=== PATIENT | female | born 1965 | race Two or more races ===

== ENCOUNTER 2018-01-13 15:37 | Emergency (ER) | payer OTHER ==
[~2018-01-13] VITALS: Ht 154.9 cm; Wt 68.0 kg
[~2018-01-13 15:37] MED LIST: ALPRAZOLAM0.5 MG PO; IBUPROFEN600 MG ORAL; IBUPROFEN600 MG PO; KEFLEX500 MG ORAL; TYLENOL EXTRA500 MG ORAL; VALIUM5 MG PO
[2018-01-13 15:45] VITALS: BP 156/90
[2018-01-13] MEDS ORDERED: Aspirin Baby 81mg ORAL ONE (16:00)
[2018-01-13] MEDS ORDERED: NKM (16:01)
--- NOTE | 2018-01-13 16:27 | Diagnostic Imaging Report ---
Indication: Chest pain, nonradiating, for 2 days, burning Technique: One view of the chest Comparison: For 12/02/2014 Findings: Body habitus limits evaluation. Lungs and pleural spaces remain clear. The heart size is normal. Findings are unchanged Impression: No acute process
[2018-01-13 16:32] LABS: BASOPHILS % (AUTO) 0.8 % (0.0-2.0); EOSINOPHILS % (AUTO) 1.6 % (0.0-3.0); HEMATOCRIT 41.1 % (37.0-47.0); HEMOGLOBIN 14.2 G/DL (12.0-16.0); MEAN CORPUSCULAR VOLUME 88 FL (80-99); MONOCYTES % (AUTO) 6.8 % (1.0-10.0); NEUTROPHILS % (AUTO) 53.8 % (45.0-75.0); PLATELET COUNT 162 K/UL (150-450); RED BLOOD COUNT 4.65 M/UL (4.20-5.40); RED CELL DISTRIBUTION WIDTH 12.1 % (11.6-14.8)
[2018-01-13 16:36] LABS: APPEARANCE,URINE CLEAR; BILIRUBIN, URINE NEGATIVE (NEGATIVE); COLOR,URINE PALE YELLOW; GLUCOSE, URINE (UA) NEGATIVE (NEGATIVE); KETONES,URINE NEGATIVE (NEGATIVE); LEUKOCYTE ESTERASE ,URINE 2+ (NEGATIVE); NITRITE,URINE NEGATIVE (NEGATIVE); PH,URINE 6.5 (4.5-8.0); PROTEIN,URINE NEGATIVE (NEGATIVE); UROBILINOGEN,URINE NORMAL MG/DL (0.0-1.0)
[2018-01-13 16:41] LABS: INR 1.1 (0.9-1.1)
[2018-01-13 16:44] LABS: ANION GAP 5 mmol/L (5-15); BLOOD UREA NITROGEN 19 mg/dL (7-18); CARBON DIOXIDE 30 MMOL/L (21-32); CHLORIDE 104 MMOL/L (98-107); CREATININE 0.9 MG/DL (0.55-1.30); POTASSIUM 3.8 MMOL/L (3.5-5.1); SODIUM 139 MMOL/L (136-145)
[2018-01-13 16:56] LABS: ALANINE AMINOTRANSFERASE 30 U/L (12-78); ALBUMIN 3.4 G/DL (3.4-5.0); ALBUMIN/GLOBULIN RATIO 0.8 (1.0-2.7); ALKALINE PHOSPHATASE 100 U/L (46-116); ASPARTATE AMINO TRANSFERASE 20 U/L (15-37); BILIRUBIN,TOTAL 0.2 MG/DL (0.2-1.0); CKMB 3.7 NG/ML (0.0-3.6); CREATINE KINASE 243 U/L (26-308)
[2018-01-13] MEDS ORDERED: Lidocaine 2% Visc 15ml soln ORAL ONE (17:00)
[2018-01-13 18:20] VITALS: BP 141/65
--- NOTE | 2018-01-13 18:58 | Emergency Room Report ---
History of Present Illness General Chief Complaint: Chest Pain Source: Patient Present Illness HPI This patient complains of chest pain and headache. The patient states that she has had chest pain for the past few days. She states she went and saw her primary OB last week and was found to have high blood pressure. She notes that she has not had a history of high blood pressure. She states that she has had an ongoing headache for about a week. She states that her chest pain started 2 days ago. She states she's also had a burning sensation in her chest. She denies fever or chills. She denies cough or congestion. She denies abdominal pain. She has no other complaints. Allergies: Coded Allergies: No Known Allergies (Unverified , 11/20/12) Patient History Past Medical History: see triage record, HTN Social History: Denies: smoking, alcohol use, drug use Last Menstrual Period: 2015 Reviewed Nursing Documentation: PMH: Agreed; PSxH: Agreed Nursing Documentation-PMH Past Medical History: No Stated History Hx Hypertension: Yes Review of Systems All Other Systems: negative except mentioned in HPI Physical Exam Vital Signs Date Time Temp Pulse Resp B/P (MAP) Pulse Ox O2 Delivery O2 Flow Rate FiO2 01/13/18 15:45 72 14 Room Air 01/13/18 15:45 98.2 156/90 99 Sp02 EP Interpretation: reviewed, normal General Appearance: no apparent distress, alert, GCS 15, non-toxic Head: normocephalic, atraumatic Eyes: bilateral eye normal inspection, bilateral eye PERRL ENT: hearing grossly normal, normal pharynx, no angioedema, normal voice Neck: full range of motion, supple/symm/no masses Respiratory: chest non-tender, lungs clear, normal breath sounds, no respiratory distress, no retraction, no accessory muscle use, speaking full sentences Cardiovascular #1: regular rate, rhythm, no edema Gastrointestinal: normal bowel sounds, non tender, soft, non-distended, no guarding, no rebound Rectal: deferred Musculoskeletal: back normal, gait/station normal, normal range of motion, non- tender Neurologic: alert, oriented x3, responsive, motor strength/tone normal, sensory intact, speech normal Psychiatric: judgement/insight normal, memory normal, mood/affect normal, no suicidal/homicidal ideation Skin: normal color, no rash, warm/dry, well hydrated Medical Decision Making Diagnostic Impression: Primary Impression: Chest pain Additional Impression: UTI (urinary tract infection) ER Course The patient is low risk chest pain. I considered PE, PTX, acute coronary syndrome, aortic dissection, pneumonia which is unlikely given hx, CE, CXR. Low risk PERC and Wells. Negative work-up to include Cardiac enzymes, CXR, EKG. Given history and PE I do not feel that this patient needs further evaluation at this time. The patient was instructed to follow-up closely with their PCP and close return precautions were given. Laboratory Tests Test 01/13/18 16:18 White Blood Count 7.0 K/UL (4.8-10.8) Red Blood Count 4.65 M/UL (4.20-5.40) Hemoglobin 14.2 G/DL (12.0-16.0) Hematocrit 41.1 % (37.0-47.0) Mean Corpuscular Volume 88 FL (80-99) Mean Corpuscular Hemoglobin 30.6 PG (27.0-31.0) Mean Corpuscular Hemoglobin Concent 34.6 G/DL (32.0-36.0) Red Cell Distribution Width 12.1 % (11.6-14.8) Platelet Count 162 K/UL (150-450) Mean Platelet Volume 12.0 FL (6.5-10.1) H Neutrophils (%) (Auto) 53.8 % (45.0-75.0) Lymphocytes (%) (Auto) 37.0 % (20.0-45.0) Monocytes (%) (Auto) 6.8 % (1.0-10.0) Eosinophils (%) (Auto) 1.6 % (0.0-3.0) Basophils (%) (Auto) 0.8 % (0.0-2.0) Prothrombin Time 11.4 SEC (9.30-11.50) Prothrombin Time INR 1.1 (0.9-1.1) PTT 31 SEC (23-33) Urine Color Pale yellow Urine Appearance Clear Urine pH 6.5 (4.5-8.0) Urine Specific [place] 1.010 (1.005-1.035) Urine Protein Negative (NEGATIVE) Urine Glucose (UA) Negative (NEGATIVE) Urine Ketones Negative (NEGATIVE) Urine Blood 1+ (NEGATIVE) H Urine Nitrite Negative (NEGATIVE) Urine Bilirubin Negative (NEGATIVE) Urine Urobilinogen Normal MG/DL (0.0-1.0) Urine Leukocyte Esterase 2+ (NEGATIVE) H Urine RBC 2-4 /HPF (0 - 2) H Urine WBC 5-10 /HPF (0 - 2) H Urine Squamous Epithelial Cells Few /LPF (NONE/OCC) Urine Bacteria Occasional /HPF (NONE) Sodium Level 139 MMOL/L (136-145) Potassium Level 3.8 MMOL/L (3.5-5.1) Chloride Level 104 MMOL/L (98-107) Carbon Dioxide Level 30 MMOL/L (21-32) Anion Gap 5 mmol/L (5-15) Blood Urea Nitrogen 19 mg/dL (7-18) H Creatinine 0.9 MG/DL (0.55-1.30) Estimate Glomerular Filtration Rate > 60 mL/min (>60) Glucose Level 90 MG/DL (74-106) Calcium Level 9.0 MG/DL (8.5-10.1) Total Bilirubin 0.2 MG/DL (0.2-1.0) Aspartate Amino Transferase (AST) 20 U/L (15-37) Alanine Aminotransferase (ALT) 30 U/L (12-78) Alkaline Phosphatase 100 U/L (46-116) Total Creatine Kinase 243 U/L (26-308) Creatine Kinase MB 3.7 NG/ML (0.0-3.6) H Creatine Kinase MB Relative Index 1.5 Troponin I 0.000 ng/mL (0.000-0.056) Total Protein 7.6 G/DL (6.4-8.2) Albumin 3.4 G/DL (3.4-5.0) Globulin 4.2 g/dL Albumin/Globulin Ratio 0.8 (1.0-2.7) L Urine Opiates Screen Negative (NEGATIVE) Urine Barbiturates Screen Negative (NEGATIVE) Phencyclidine (PCP) Screen Negative (NEGATIVE) Urine Amphetamines Screen Negative (NEGATIVE) Urine Benzodiazepines Screen Negative (NEGATIVE) Urine Cocaine Screen Negative (NEGATIVE) Urine Marijuana (THC) Screen Negative (NEGATIVE) EKG Diagnostic Results Rate: normal Rhythm: NSR ST Segments: no acute changes Rhythm Strip Diag. Results EP Interpretation: yes Rate: 60's Rhythm: NSR, no PVC's, no ectopy Chest X-Ray Diagnostic Results Chest X-Ray Diagnostic Results : Chest X-Ray Ordered: Yes # of Views/Limited/Complete: 1 View Indication: Chest Pain EP Interpretation: Yes Interpretation: no consolidation, no effusion, no pneumothorax, no acute cardiopulmonary disease Impression: No acute disease Electronically Signed by: Pippa Last Vital Signs Date Time Temp Pulse Resp B/P (MAP) Pulse Ox O2 Delivery O2 Flow Rate FiO2 01/13/18 18:20 98.0 60 22 141/65 98 Room Air Status: improved Disposition: HOME, SELF-CARE Condition: Improved Referrals: [facility],REFERRING (PCP) Patient Instructions: Nonspecific Chest Pain, Heartburn Erica Tejeda DO Jan 13, 2018 18:58
[2018-01-13] MEDS ORDERED: ZANTAC150 MG ORAL (19:00)
[2018-01-13] MEDS ORDERED: NITROFURANTOIN100 M2 ORAL (19:03)
[2018-01-13 19:10] VITALS: BP 135/78
--- NOTE | 2018-01-14 10:04 | Diagnostic Imaging Report ---
Indication: Headache Technique: Contiguous 5 mm thick transaxial imaging of the head obtained in a Siemens Sensation [address] scanner. Soft tissue and bone windows generated. Automatic Exposure Control was utilized. Total Dose length Product (DLP): 2191.[address] Dose Index Volume (CTDIvol): 70.38,70.38 mGy Comparison: none Findings: The size and configuration of the cortical sulci, basal cisterns, and ventricles are within normal limits for age. There is no mass effect, midline shift, or edema identified. There is no evidence of acute hemorrhage or abnormal intra-axial or extra-axial fluid collections. The bones and soft tissues are unremarkable. Impression: No mass effect, edema or acute bleed. The CT scanner at [facility] is accredited by the [employer] and the scans are performed using dose optimization techniques as appropriate to a performed exam including Automatic Exposure control.
--- NOTE | 2018-01-15 15:09 | Cardiology Report ---
APPROVED REPORT EKG Measurement Heart [id number] Normal sinus rhythm Normal ECG
== END 2018-01-13 19:11 | disposition home or self-care (01) ==
LOC: EMR 16:23
DX: R07.9 Chest pain, unspecified (principal); N39.0 Urinary tract infection, site not specified; I10 Essential (primary) hypertension
CPT/HCPCS: 36415; 70450; 71045; 80053; 80307; 81003; 82550; 82553; 84484; 85025; 85610; 85730; 93005; 96361; 96374; 99284; S0028; 96360

== ENCOUNTER 2018-01-29 21:24 | Emergency (ER) | payer OTHER ==
[~2018-01-29] VITALS: Ht 157.5 cm; Wt 94.8 kg
[~2018-01-29 21:24] MED LIST changes: +NITROFURANTOIN100 M2 ORAL; +NKM; +ZANTAC150 MG ORAL
[2018-01-29] MEDS ORDERED: LORazepam Inj 2mg/ml 1ml IV ONE (22:15)
[2018-01-29 22:33] VITALS: BP 129/73
[2018-01-29 22:50] LABS: BASOPHILS % (AUTO) 0.8 % (0.0-2.0); EOSINOPHILS % (AUTO) 2.3 % (0.0-3.0); HEMATOCRIT 39.6 % (37.0-47.0); HEMOGLOBIN 13.5 G/DL (12.0-16.0); MEAN CORPUSCULAR VOLUME 87 FL (80-99); MONOCYTES % (AUTO) 7.2 % (1.0-10.0); NEUTROPHILS % (AUTO) 44.7 % (45.0-75.0); PLATELET COUNT 165 K/UL (150-450); RED BLOOD COUNT 4.57 M/UL (4.20-5.40); RED CELL DISTRIBUTION WIDTH 11.9 % (11.6-14.8); WHITE BLOOD COUNT 7.3 K/UL (4.8-10.8)
[2018-01-29 22:57] LABS: ANION GAP 9 mmol/L (5-15); BLOOD UREA NITROGEN 17 mg/dL (7-18); CALCIUM 8.9 MG/DL (8.5-10.1); CARBON DIOXIDE 26 MMOL/L (21-32); CHLORIDE 106 MMOL/L (98-107); CREATININE 0.6 MG/DL (0.55-1.30); POTASSIUM 3.9 MMOL/L (3.5-5.1); SODIUM 141 MMOL/L (136-145)
[2018-01-29] MEDS ORDERED: ATIVAN0.5 MG ORAL (23:27)
--- NOTE | 2018-01-29 23:27 | Emergency Room Report ---
History of Present Illness General Chief Complaint: Pain Source: Patient, Medical Record Present Illness HPI Is a 52-year-old female with history of hypertension. She presents with chief complaint of chest pain, high blood pressure. She took her blood pressure at the pharmacy and was elevated. She then developed chest pain. No nausea no vomiting. Similar symptom for the last couple weeks. Denies any diaphoresis. Denies any shortness breath. Said her heart was beating fast. Denies any other complaint. Allergies: Coded Allergies: NITROFURANTOIN (Verified Allergy, Unknown, 01/29/18) Patient History Past Medical History: see triage record, old chart reviewed, HTN Past Surgical History: none Pertinent Family History: none Social History: Denies: smoking Last Menstrual Period: Post menopausal (2006) Now: No Immunizations: other Reviewed Nursing Documentation: PMH: Agreed; PSxH: Agreed Nursing Documentation-PMH Past Medical History: No History, Except For Hx Hypertension: Yes Hx Gastrointestinal Problems: Yes - GERD Review of Systems Eye: Denies: eye pain, blurred vision ENT: Denies: ear pain, nose congestion, throat swelling Respiratory: Denies: cough, shortness of breath Cardiovascular: Reports: chest pain; Denies: palpitations Gastrointestinal: Denies: abdominal pain, diarrhea, nausea, vomiting Musculoskeletal: Denies: back pain, joint pain Skin: Denies: rash Neurological: Denies: headache, numbness Endocrine: Denies: increased thirst, increased urine Hematologic/Lymphatic: Denies: easy bruising All Other Systems: negative except mentioned in HPI Physical Exam Vital Signs Date Time Temp Pulse Resp B/P (MAP) Pulse Ox O2 Delivery O2 Flow Rate FiO2 01/29/18 21:31 98.1 63 19 148/75 99 Room Air vitals with high blood pressure Sp02 EP Interpretation: reviewed, normal General Appearance: well appearing, no apparent distress, alert Head: normocephalic, atraumatic Eyes: bilateral eye PERRL, bilateral eye EOMI ENT: hearing grossly normal, normal pharynx Neck: full range of motion, supple, no meningismus Respiratory: chest non-tender, lungs clear, normal breath sounds Cardiovascular #1: regular rate, rhythm, no murmur Gastrointestinal: normal bowel sounds, non tender, no mass, no organomegaly, no bruit, non-distended Musculoskeletal: back normal, gait/station normal, normal range of motion Psychiatric: mood/affect normal Skin: warm/dry Medical Decision Making Diagnostic Impression: Primary Impression: Anxiety attack Additional Impression: Chest pain ER Course Patient with chest pain. Most likely anxiety related. Without any intervention blood pressures normal. No evidence of ACS, PE, dissection to name a few. We will discharge home. Lab Results Impression labs normal EKG Diagnostic Results Rate: normal Rhythm: NSR ST Segments: no acute changes Rhythm Strip Diag. Results Rhythm Strip Time: 23:26 EP Interpretation: yes Rate: 60 Rhythm: NSR, no PVC's, no ectopy Last Vital Signs Date Time Temp Pulse Resp B/P (MAP) Pulse Ox O2 Delivery O2 Flow Rate FiO2 01/29/18 22:33 98.1 57 19 129/73 99 Room Air Status: improved Disposition: HOME, SELF-CARE Condition: Stable Scripts Lorazepam* (ATIVAN*) 0.5 Mg Tablet 0.5 MG ORAL THREE TIMES A DAY, #15 TAB Prov: Oskar Jiménez MD 01/29/18 Referrals: [facility],REFERRING (PCP) Additional Instructions: Follow-up with your doctor in 7 days. Return if worse. Oskar Jiménez MD Jan 29, 2018 23:27
[2018-01-29 23:54] VITALS: BP 129/73
[2018-01-29 23:55] VITALS: BP 129/73
--- NOTE | 2018-02-01 16:53 | Cardiology Report ---
APPROVED REPORT EKG Measurement Heart [id number] Sinus bradycardia Otherwise normal ECG
== END 2018-01-29 23:57 | disposition home or self-care (01) ==
LOC: EMR 22:07
DX: F41.9 Anxiety disorder, unspecified (principal); R07.9 Chest pain, unspecified; I10 Essential (primary) hypertension; K21.9 Gastro-esophageal reflux disease without esophagitis; Z88.8 Allergy status to other drugs, medicaments and biological substances
CPT/HCPCS: 36415; 80048; 84484; 85025; 93005; 96374; 99284

== ENCOUNTER 2018-08-13 20:38 | Emergency (ER) | payer OTHER ==
[~2018-08-13] VITALS: Ht 157.5 cm; Wt 93.0 kg
[~2018-08-13 20:38] MED LIST changes: +ATIVAN0.5 MG ORAL
--- NOTE | 2018-08-13 21:19 | NUR ---
ED Nurse Note: Urine sample collected and sent to Lab.
[2018-08-13 21:32] LABS: APPEARANCE,URINE CLEAR; BILIRUBIN, URINE NEGATIVE (NEGATIVE); COLOR,URINE PALE YELLOW; GLUCOSE, URINE (UA) NEGATIVE (NEGATIVE); KETONES,URINE NEGATIVE (NEGATIVE); LEUKOCYTE ESTERASE ,URINE 2+ (NEGATIVE); NITRITE,URINE NEGATIVE (NEGATIVE); PH,URINE 8 (4.5-8.0); PROTEIN,URINE NEGATIVE (NEGATIVE); UROBILINOGEN,URINE NORMAL MG/DL (0.0-1.0)
[2018-08-13] MEDS ORDERED: BACTRIM DS TAB1 EAC1 ORAL (21:39)
[2018-08-13] MEDS ORDERED: PHENAZOPYRIDIN100 MG ORAL (21:39)
--- NOTE | 2018-08-13 21:42 | Emergency Room Report ---
History of Present Illness General Chief Complaint: Female Urogenital Problems Source: Patient Present Illness HPI Patient presents with complaints of several days of burning with urination Denies any flank pain denies any fevers Denies any chest pain or shortness of breath Pain is 5 out of 10 worse with urination denies any other recent fall or trauma Denies any vaginal discharge or foul smell Allergies: Coded Allergies: NITROFURANTOIN (Verified Allergy, Unknown, 08/13/18) Patient History Past Medical History: see triage record Pertinent Family History: none Now: No Reviewed Nursing Documentation: PMH: Agreed; PSxH: Agreed Nursing Documentation-PMH Hx Hypertension: Yes Hx Gastrointestinal Problems: Yes - GERD Review of Systems All Other Systems: negative except mentioned in HPI Physical Exam Vital Signs Date Time Temp Pulse Resp B/P (MAP) Pulse Ox O2 Delivery O2 Flow Rate FiO2 08/13/18 20:45 98.1 67 16 167/84 (111) 98 Room Air Sp02 EP Interpretation: reviewed, normal General Appearance: well appearing, no apparent distress Head: normocephalic, atraumatic Eyes: bilateral eye PERRL, bilateral eye EOMI ENT: hearing grossly normal, normal pharynx, TMs + canals normal, uvula midline Neck: full range of motion, supple, no meningismus, no bony tend Respiratory: lungs clear, normal breath sounds, no rhonchi, no respiratory distress, no retraction, no accessory muscle use Cardiovascular #1: normal peripheral pulses, regular rate, rhythm, no edema, no gallop, no JVD, no murmur Gastrointestinal: normal bowel sounds, non tender, soft, no mass, no organomegaly, non-distended, no guarding, no hernia, no pulsatile mass, no rebound Genitourinary: no CVA tenderness Musculoskeletal: normal inspection Neurologic: oriented x3, responsive, flare worker III-XII nml as tested, motor strength/ tone normal, sensory intact Psychiatric: mood/affect normal Skin: normal color, no rash, warm/dry, palpation normal Lymphatic: normal inspection, no adenopathy Medical Decision Making Diagnostic Impression: Primary Impression: UTI (urinary tract infection) ER Course Given the history and presentation multiple differential considered including but not limited to UTI, Pyelonephritis, urethritis Patient does not appear septic or toxic Urine sample that show leukocytes and consideration for early infectious process And she will be placed on antibiotics patient also do question her blood pressure At 167 systolic at this time Patient does not have a history of hypertension With this one documentation we cannot diagnose her with hypertension I discussed that with the patient she requires checking of her blood pressure twice daily for the next several days presented to her primary physician for further follow-up as needed Labs Test 08/13/18 21:17 Urine Color Pale yellow Urine Appearance Clear Urine pH 8 (4.5-8.0) Urine Specific [place] 1.010 (1.005-1.035) Urine Protein Negative (NEGATIVE) Urine Glucose (UA) Negative (NEGATIVE) Urine Ketones Negative (NEGATIVE) Urine Blood Negative (NEGATIVE) Urine Nitrite Negative (NEGATIVE) Urine Bilirubin Negative (NEGATIVE) Urine Urobilinogen Normal MG/DL (0.0-1.0) Urine Leukocyte Esterase 2+ (NEGATIVE) Urine RBC 0-2 /HPF (0 - 2) Urine WBC 2-4 /HPF (0 - 2) Urine Squamous Epithelial Cells Few /LPF (NONE/OCC) Urine Bacteria Few /HPF (NONE) Urine HCG, Qualitative Negative (NEGATIVE) Last Vital Signs Date Time Temp Pulse Resp B/P (MAP) Pulse Ox O2 Delivery O2 Flow Rate FiO2 08/13/18 20:45 98.1 67 16 167/84 (111) 98 Room Air Status: unchanged Disposition: HOME, SELF-CARE Condition: Stable Scripts Phenazopyridine Hcl* (PYRIDIUM*) 100 Mg Tablet 100 MG ORAL THREE TIMES A DAY for 3 Days, TAB Prov: Mo Gonzales DO 08/13/18 Trimethoprim/Sulfamethoxazole 160/800* (BACTRIM DS TABLET*) 1 Each Tablet 1 TAB ORAL Q12H, #14 TAB 0 Refills Prov: Mo Gonzales DO 08/13/18 Referrals: NON PHYSICIAN (PCP) Patient Instructions: Urinary Tract Infection Additional Instructions: Patient is provided with the discharge instructions notified to follow up with primary doctor in the next 2-3 days otherwise return to the er with any worsening symptoms. Please note that this report is being documented using [employer] technology. This can lead to erroneous entry secondary to incorrect interpretation by the dictating instrument. Mo Gonzales DO Aug 13, 2018 21:42
[2018-08-13 21:45] VITALS: BP 156/82
--- NOTE | 2018-08-13 21:45 | NUR ---
ED Nurse Note: Pt arrived ED from home, c/o lower abdominal pain and urinary urgency today. Pt is A/O X4, Vital signs stable at this time, waiting for orders.
[2018-08-13 21:46] VITALS: BP 156/82
--- NOTE | 2018-08-13 21:46 | NUR ---
ER DISCHARGE NOTE: Patient is cleared to be discharged per Janet. Medical report provided. Pt is aox4 on room air with stable vital signs. Pt was given dc and prescription instructions, pt was able to verbalize understanding. Pt's id band removed. Pt is able to ambulate with steady gait and took all belongings. Addendum: 08/13/18 at 2325 by EDGAR ER DISCHARGE NOTE: Patient is cleared to be discharged per Janet. Pt is aox4 on room air with stable vital signs. Pt was given dc and prescription instructions, pt was able to verbalize understanding. Pt's id band removed. Pt is able to ambulate with steady gait and took all belongings.
== END 2018-08-13 21:46 | disposition home or self-care (01) ==
LOC: EMR 21:25
DX: N39.0 Urinary tract infection, site not specified (principal); K21.9 Gastro-esophageal reflux disease without esophagitis; I10 Essential (primary) hypertension; Z88.8 Allergy status to other drugs, medicaments and biological substances
CPT/HCPCS: 81003; 81025; 99283

== ENCOUNTER 2019-01-03 17:23 | Emergency (ER) | payer OTHER ==
[~2019-01-03] VITALS: Ht 157.5 cm; Wt 93.4 kg
[~2019-01-03 17:23] MED LIST changes: +BACTRIM DS TAB1 EAC1 ORAL; +PHENAZOPYRIDIN100 MG ORAL
--- NOTE | 2019-01-03 17:46 | Emergency Room Report ---
History of Present Illness General Chief Complaint: Abdominal Pain Source: Patient Present Illness HPI 53 YO Female presents to the emergency department complaining of 8 out of 10 severity dysuria, and urinary urgency x3 days. Patient does report some intermittent right-sided low back cramping. Patient denies fevers or chills she denies hematuria. she reports feeling as though she is not fully emptying her bladder and has constant ache in the bladder region. Denies nausea, vomiting, fevers or chills. Denies constipation or diarrhea. Reports hx of UTI in the past. Pt. reports here PCP gave her an in office sample of a medication called Myrbetriq which did not provide any relief of her symptoms. Allergies: Coded Allergies: NITROFURANTOIN (Verified Allergy, Unknown, 08/13/18) Patient History Past Medical History: see triage record, HTN, GERD Past Surgical History: none Pertinent Family History: none Now: No Reviewed Nursing Documentation: PMH: Agreed; PSxH: Agreed Nursing Documentation-PMH Past Medical History: No History, Except For Hx Hypertension: Yes Hx Gastrointestinal Problems: Yes - GERD Review of Systems All Other Systems: negative except mentioned in HPI Physical Exam Vital Signs Date Time Temp Pulse Resp B/P (MAP) Pulse Ox O2 Delivery O2 Flow Rate FiO2 01/03/19 17:27 98.4 71 16 154/89 (110) 96 Room Air Sp02 EP Interpretation: reviewed, normal General Appearance: no apparent distress, alert, GCS 15, non-toxic Head: normocephalic, atraumatic Eyes: bilateral eye normal inspection, bilateral eye PERRL ENT: hearing grossly normal, normal voice Neck: full range of motion Respiratory: lungs clear, normal breath sounds, speaking full sentences Cardiovascular #1: regular rate, rhythm Gastrointestinal: normal bowel sounds, non tender, soft, non-distended, no guarding Genitourinary: normal inspection, no CVA tenderness Musculoskeletal: back normal, gait/station normal, normal range of motion, non- tender Neurologic: alert, oriented x3, responsive, motor strength/tone normal, sensory intact, speech normal, grossly normal Psychiatric: judgement/insight normal Lymphatic: no adenopathy Medical Decision Making PA Attestation Dr. Schwartz is my supervising Physician whom patient management has been discussed with. Diagnostic Impression: Primary Impression: UTI (urinary tract infection) Qualified Codes: N30.01 - Acute cystitis with hematuria ER Course 53 YO Female presents to the emergency department complaining of 8 out of 10 severity dysuria, and urinary urgency x3 days. Patient does report some intermittent right-sided low back cramping. Patient denies fevers or chills she denies hematuria. she reports feeling as though she is not fully emptying her bladder and has constant ache in the bladder region. Denies nausea, vomiting, fevers or chills. Denies constipation or diarrhea. Reports hx of UTI in the past. Pt. reports here PCP gave her an in office sample of a medication called Myrbetriq which did not provide any relief of her symptoms. Ddx considered but are not limited to UTi , Pyelo, STI, Stone, Cystitis Vital signs: are WNL, pt. is afebrile H&PE are most consistent with possible UTI --Pt. PCP was treating pt. with new medication for overactive bladder. ORDERS: - UA labs are attached - 1+ leuks with elevation in WBC's, few bacteria in the presence of elevated inflammatory markers suspicious for UTI. ED INTERVENTIONS: -Pyridium PO -I do not identify an emergent condition at this time. With current presentation , pt. is stable for close outpatient follow up and conservative treatment. D/ w pt. to return promptly to ED with worsening or new symptoms.- Pt. verbalizes' understanding and agreement with proposed treatment plan. DISCHARGE: At this time pt. is stable for d/c to home. Will provide printed patient care instructions, and any necessary prescriptions. Care plan and follow up instructions have been discussed with the patient prior to discharge. Labs Test 01/03/19 17:40 Urine Color Pale yellow Urine Appearance Clear Urine pH 6 (4.5-8.0) Urine Specific [place] 1.015 (1.005-1.035) Urine Protein Negative (NEGATIVE) Urine Glucose (UA) Negative (NEGATIVE) Urine Ketones Negative (NEGATIVE) Urine Blood 1+ (NEGATIVE) Urine Nitrite Negative (NEGATIVE) Urine Bilirubin Negative (NEGATIVE) Urine Urobilinogen Normal MG/DL (0.0-1.0) Urine Leukocyte Esterase 1+ (NEGATIVE) Urine RBC 2-4 /HPF (0 - 2) Urine WBC 10-15 /HPF (0 - 2) Urine Squamous Epithelial Cells Many /LPF (NONE/OCC) Urine Bacteria Few /HPF (NONE) Last Vital Signs Date Time Temp Pulse Resp B/P (MAP) Pulse Ox O2 Delivery O2 Flow Rate FiO2 01/03/19 17:27 98.4 71 16 154/89 (110) 96 Room Air Disposition: HOME, SELF-CARE Condition: Stable Scripts Fluconazole (FLUCONAZOLE) 100 Mg Tablet 100 MG ORAL DAILY, #2 TAB 0 Refills Prov: Viridiana Michael 01/03/19 Phenazopyridine Hcl* (PYRIDIUM*) 200 Mg Tablet 200 MG ORAL THREE TIMES A DAY, #12 TAB 0 Refills Prov: Viridiana Michael 01/03/19 Trimethoprim/Sulfamethoxazole 160/800* (BACTRIM DS TABLET*) 1 Each Tablet 1 TAB ORAL TWICE A DAY for 7 Days, #14 TAB Prov: Viridiana Michael 01/03/19 Patient Instructions: Urinary Tract Infection, [id number] Additional Instructions: Take medications as directed. Follow up with a Primary Care Provider in 3-5 days, even if your symptoms have resolved. Return sooner to ED if new symptoms occur, or current symptoms become worse. - Please note that this Emergency Department Report was dictated using [employer] technology software, occasionally this can lead to erroneous entry secondary to interpretation by the dictation equipment. Viridiana Michael Jan 03, 2019 17:46
--- NOTE | 2019-01-03 17:53 | NUR ---
ED Nurse Note:urine sent to labs
[2019-01-03 17:54] VITALS: BP 154/89
[2019-01-03] MEDS ORDERED: Phenazopyridine 200mg tab ORAL ONE (18:00)
[2019-01-03 18:09] LABS: APPEARANCE,URINE CLEAR; BILIRUBIN, URINE NEGATIVE (NEGATIVE); COLOR,URINE PALE YELLOW; GLUCOSE, URINE (UA) NEGATIVE (NEGATIVE); KETONES,URINE NEGATIVE (NEGATIVE); LEUKOCYTE ESTERASE ,URINE 1+ (NEGATIVE); NITRITE,URINE NEGATIVE (NEGATIVE); PH,URINE 6 (4.5-8.0); PROTEIN,URINE NEGATIVE (NEGATIVE); UROBILINOGEN,URINE NORMAL MG/DL (0.0-1.0)
[2019-01-03] MEDS ORDERED: PHENAZOPYRIDIN200 MG ORAL (18:29)
[2019-01-03] MEDS ORDERED: BACTRIM DS TAB1 EAC1 ORAL (18:29)
[2019-01-03 18:38] VITALS: BP 154/89
[2019-01-03] MEDS ORDERED: FLUCONAZOLE100 MG ORAL (18:50)
--- NOTE | 2019-01-03 18:50 | NUR ---
ER DISCHARGE NOTE: Patient is cleared to be discharged per ERMD, pt is aox4, on room air, with stable vital signs. pt was given dc and prescription instructions, pt was able to verbalize understanding, pt is able to ambulate with steady gait. pt took all belongings.
== END 2019-01-03 18:53 | disposition home or self-care (01) ==
LOC: EMR 17:57
DX: N30.01 Acute cystitis with hematuria (principal); K21.9 Gastro-esophageal reflux disease without esophagitis; I10 Essential (primary) hypertension; Z88.8 Allergy status to other drugs, medicaments and biological substances
CPT/HCPCS: 81003; 87086; Z7502; 99283